=== PATIENT | female | born 2000 | race Caucasian/White ===

== ENCOUNTER → 2025-06-02 | Outpatient (CLI) | payer BC | END | disposition home or self-care (01) | LOC: US 10:28 | PROVIDERS: ATTEND Obstetrics & Gynecology | DX: Z34.82 Encounter for supervision of other normal pregnancy, second trimester (principal); Z3A.22 22 weeks gestation of pregnancy | CPT/HCPCS: 76805 ==

== ENCOUNTER → 2025-08-28 | Outpatient (CLI) | payer BC | END | disposition home or self-care (01) | LOC: US 10:44 | PROVIDERS: ATTEND Obstetrics & Gynecology | DX: Z34.93 Encounter for supervision of normal pregnancy, unspecified, third trimester (principal); Z3A.35 35 weeks gestation of pregnancy | CPT/HCPCS: 76805 ==